=== PATIENT | female | born 1965 | race Caucasian/White ===

== ENCOUNTER 2017-09-04 12:13 | Outpatient (CLI) | payer MEDICARE, MEDICAID ==
[2017-09-04 16:06] LABS: #Basophils 0.1 thou/uL (0.0-0.2); #Eosinphils 0.2 thou/uL (0.0-0.7); #Lymphocytes 2.5 thou/uL (1.20-3.40); #Monocytes 0.5 thou/uL (0.11-0.59); %Eosinophils 1.7 % (0.0-10.0); %Lymphocytes 23.8 % (21.0-51.0); Hematocrit 45.8 % (36.0-47.0); Mean Platelet Volume 7.9 fL (7.4-10.4); Red Blood Cell (RBC) Count 4.78 mill/uL (4.20-5.40); White Blood Cell (WBC) Count 10.3 thou/uL (4.8-10.8)
== END 2017-09-04 12:14 | disposition home or self-care (01) ==
LOC: LABBT 12:13
PROVIDERS: ATTEND Orthopaedic Surgery
DX: Z01.812 Encounter for preprocedural laboratory examination (principal); G56.02 Carpal tunnel syndrome, left upper limb
CPT/HCPCS: 85025

== ENCOUNTER 2017-09-05 06:42 | Day surgery (SDC) | payer MEDICARE, MEDICAID ==
[2017-09-04 12:40] VITALS: BMI 35.5
[2017-09-05] MEDS ORDERED: CEFAZOLIN/Water 2 GM/20 ML SYRINGE ONE (08:22)
[2017-09-05] MEDS ORDERED: Lidocaine 1% (PF) 30 ML VIAL ONE (09:09)
[2017-09-05] MEDS ORDERED: Meperidine HCl/PF 25 MG/ML VIAL ONE (09:16)
[2017-09-05] MEDS ORDERED: Midazolam HCl 2 mg/2 ml Vial ONE (09:16)
--- NOTE | 2017-09-05 10:12 | OP ---
DATE OF PROCEDURE: 09/05/2017 PREOPERATIVE DIAGNOSIS: Left carpal tunnel syndrome. POSTOPERATIVE DIAGNOSIS: Left carpal tunnel syndrome. PROCEDURES PERFORMED: 1. Left open carpal tunnel release. 2. Placement of short arm volar splint left upper extremity. SURGEON: Thuan Nicolas M.D. SENIOR HEALTH CONSULTANT: None. BLOOD LOSS: Minimal. COMPLICATIONS: None. ANESTHESIA: She did have a general anesthetic. DISPOSITION: She went to the recovery room in stable condition. INDICATIONS: A 52-year-old female who has been having problems with numbness, tingling, and weakness in the hand. An EMG/NCV confirmed significant carpal tunnel syndrome. At this time, she opted for surgical release. DESCRIPTION OF PROCEDURE: After all appropriate consent forms were explained and signed, the patient was taken back to the operating room and at this time was given IV sedation. A well-padded tourniqu et was placed on the left arm and the arm was then prepped and draped in the standard surgical fashio n. The incision was then drawn out and infiltrated with plain lidocaine. Limb was exsanguinated and tourniquet taken up to 250 mmHg. At this time, using Loupe magnification, a 15 blade was used to in cise down through skin. Bipolar cautery was used to coagulate any brisk venous bleeding. We then pl aced a small hemostat to protect the underlying median nerve and transected the transverse carpal lig ament using multiple 15 blades as well as scissors. Once this was done, a small finger was inserted to palpate for any remaining bands. At this time, a moist Ray-Jake sponge was placed into the wound. Tourniquet was let down and pressure was held. Bipolar cautery used to coagulate any brisk venous b leeding. The wound was then irrigated with saline solution and we then evaluated the nerve. The ner ve was found to be significantly injected, the nerve was intact, there were no masses noted, and the underlying flexor tendons were in good condition. At this time, we irrigated and dried the wound. W e then placed multiple nylon stitches to close the incision. A bulky sterile hand dressing and a sma ll volar splint were then made. The patient was then awakened and taken to recovery in stable condit ion. All counts were correct at the end of the case. The patient received preoperative IV antibioti cs.
[2017-09-05] MEDS ORDERED: HYDROcodone/Acetaminophen 5/325 mg Tablet ONE (11:18)
[2017-09-05] MEDS ORDERED: Propofol 200 MG/20 ML VIAL ONE (15:33)
[2017-09-05] MEDS ORDERED: Lidocaine 1% PF 5 ML VIAL ONE (15:33)
== END 2017-09-05 11:48 ==
LOC: SDC 06:42
PROVIDERS: ATTEND Orthopaedic Surgery
PROC: 01N50ZZ Release Median Nerve, Open Approach (ICD-10-PCS; principal; 2017-09-05)
DX: G56.02 Carpal tunnel syndrome, left upper limb (principal); I10 Essential (primary) hypertension; E11.9 Type 2 diabetes mellitus without complications; G47.33 Obstructive sleep apnea (adult) (pediatric); F32.9 Major depressive disorder, single episode, unspecified; E78.5 Hyperlipidemia, unspecified; F17.210 Nicotine dependence, cigarettes, uncomplicated; Z79.84 Long term (current) use of oral hypoglycemic drugs; Z79.899 Other long term (current) drug therapy; Z98.51 Tubal ligation status; Z88.5 Allergy status to narcotic agent; Z90.49 Acquired absence of other specified parts of digestive tract; Z90.89 Acquired absence of other organs; Z98.890 Other specified postprocedural states
CPT/HCPCS: J2001; J2175; J2250; J2704

== ENCOUNTER 2017-09-29 19:35 | Emergency (ER) | payer MEDICARE, MEDICAID | END 2017-09-29 20:51 | disposition left against medical advice (07) | LOC: ERS 19:35 | DX: Z53.21 Procedure and treatment not carried out due to patient leaving prior to being seen by health care provider (principal) ==

== ENCOUNTER 2018-01-12 15:47 | Inpatient (IN) | payer MEDICARE, MEDICAID ==
[~2018-01-12 15:47] MED LIST: ISOVUE-370 76%-LOCM 1 ML ONE
[2018-01-12 16:20] LABS: #Basophils 0.1 thou/uL (0.0-0.2); #Eosinphils 0.3 thou/uL (0.0-0.7); #Lymphocytes 2.7 thou/uL (1.20-3.40); #Monocytes 1.3 thou/uL (0.11-0.59); #Neutrophils 15.1 thou/uL (1.40-6.50); %Basophils 0.4 % (0.0-1.0); %Eosinophils 1.3 % (0.0-10.0); %Lymphocytes 13.8 % (21.0-51.0); %Monocytes 6.6 % (0.0-10.0); %Neutrophils 77.9 % (42.0-75.0); Hemoglobin 14.7 g/dL (12.0-16.0); Mean Corpuscular HGB CONC 34.2 g/dL (32.0-36.0); Mean Corpuscular Hemoglobin 30.5 pg (27.0-31.0); Mean Corpuscular Volume 89.2 fl (81.0-99.0); Mean Platelet Volume 7.2 fL (7.4-10.4); Platelet Count 336 thou/uL (130-400); RBC Distribution Width 12.4 % (11.5-14.5); Red Blood Cell (RBC) Count 4.81 mill/uL (4.20-5.40); White Blood Cell (WBC) Count 19.4 thou/uL (4.8-10.8)
--- NOTE | 2018-01-12 16:37 | RAD ---
CHEST ONE VIEW: HISTORY: Chest pain. FINDINGS: The cardiac silhouette and pulmonary vasculature are unremarkable. The mediastinum is midline. No l obar consolidation or evidence of pneumothorax. educational technician leads overly the chest. IMPRESSION: No active cardiopulmonary abnormalities demonstrated. POS: [facility]
[2018-01-12 16:49] LABS: Acetaminophen Less than 6.0 mcg/mL (10.0-30.0); Alcohol Less than 10 mg/dL (Less than 10); Salicylate Less than 8.0 mg/dL (15.0-30.0)
[2018-01-12 16:52] LABS: ALT (SGPT) 43 U/L (8-55); AST (SGOT) 60 U/L (5-34); Albumin 4.4 g/dL (3.5-5.0); Alkaline Phosphatase 106 U/L (40-150); Anion Gap 16 mmol/L (10-20); BUN (Urea Nitrogen) 36 mg/dL (9.8-20.1); Bilirubin, Total 0.5 mg/dL (0.2-1.2); CK (CPK) 1814 U/L (29-168); Calc. Creatinine Clearance 0 mL/min (70-130); Calcium 10.1 mg/dL (7.8-10.44); Carbon Dioxide 23 mmol/L (22-29); Chloride 97 mmol/L (98-107); Estimated GFR-MDRD 17; Globulin 2.9 g/dL (2.4-3.5); Glucose 190 mg/dL (70-105); Lipase 60 U/L (8-78); Potassium 4.3 mmol/L (3.5-5.1); Protein, Total 7.3 g/dL (6.0-8.3); Sodium 132 mmol/L (136-145)
[2018-01-12 16:55] LABS: Troponin I 0.038 ng/mL (< 0.028)
[2018-01-12 17:03] LABS: CKMB 29.6 ng/mL (0-6.6)
[2018-01-12] MEDS ORDERED: Fentanyl 100 MCG/2 ML VIAL ONE (17:25)
--- NOTE | 2018-01-12 18:13 | CT ---
CT ARTERIOGRAM CHEST WITH IV CONTRAST AND 3D MIP IMAGING: CT ARTERIOGRAM ABDOMEN WITH IV CONTRAST AND 3D MIP IMAGING: CT THORACIC SPINE NONCONTRAST: HISTORY: Chest and back pain. Abdomen pain with radiation to back. FINDINGS: There is good contrast opacification of the pulmonary artery and aorta with normal branching of the g reat vessels. No filling defects or abnormal dilatation. Calcification is present within the arteri al structures. Visceral arteries of the abdomen are patent. A tiny, nonspecific, nodular infiltrate is present at the right posterolateral lung base. No pleural fluid, pneumothorax, or mediastinal adenopathy. The liver, spleen, adrenal glands, and pancreas are unremarkable. Degenerative changes of the thorac olumbar spine. Compression of the T11 vertebral body results in loss of height of the superior endp late by approximately 20%. There is extensive sclerosis and osteophytosis. Minimal retropulsion. IMPRESSION: 1. No CT evidence of aortic aneurysm or dissection. 2. Atherosclerosis. 3. Partial compression, T11 superior endplate, favored to be chronic. POS: [facility]
[2018-01-12] MEDS ORDERED: Norepinephrine 4 MG/4 ML VIAL ONE (18:15)
[2018-01-12 18:21] LABS: Bilirubin Negative (Negative); Blood, Urine Negative (Negative); Clarity CLOUDY (Clear); Glucose, Urine (Dipstick) Negative (Negative); Leukocyte Negative (Negative); Nitrite Negative (Negative); Protein, Urine (Dipstick) Trace mg/dL (Neg-Trace); Specific Gravity, Urine 1.024 (1.002-1.036); Urobilinogen 0.2 mg/dL (0.2-1.0)
[2018-01-12] MEDS ORDERED: Lorazepam 2 MG/ML VIAL ONE ×2 (18:22→18:49)
[2018-01-12] MEDS ORDERED: Norepinephrine 8 MG/250 ML BAG IVPB SCH (18:30)
[2018-01-12 18:34] LABS: Medtox Reader # READER 4
[2018-01-12 18:35] LABS: Amphetamine Detected (NotDetected); Barbiturates Screen Not Detected (NotDetected); Benzodiazepine Screen Detected (NotDetected); Cocaine Metabolite Screen Detected (NotDetected); Medtox Control Line Valid? VALID (VALID); Methadone Not Detected (NotDetected); Methamphetamine Detected (NotDetected); Opiate Screen Not Detected (NotDetected); Oxycodone Screen Not Detected (NotDetected); Phencyclidine (PCP) Not Detected (NotDetected); THC/Cannabinoid Screen Not Detected (NotDetected); Tricyclic Screen Not Detected (NotDetected)
[2018-01-12] MEDS ORDERED: Lidocaine 2% 10 ML INJ ONE (18:49)
[2018-01-12] MEDS ORDERED: KETAMINE 100 MG/ML (5ML VIAL) ONE (18:58)
[2018-01-12] MEDS ORDERED: Rocuronium Bromide 50 MG/5 ML VIAL ONE (19:39)
[2018-01-12] MEDS ORDERED: fentaNYL Citrate/PF 2,000 MCG in Sodium Chloride 0.9% 60 ML IV SCH (19:45)
[2018-01-12] MEDS ORDERED: Aspirin 300 MG Suppository ONE (20:07)
[2018-01-12 20:13] LABS: Actual Bicarbonate (HCO3a) 20.5 mEq/L (22-26); Base Excess (BEa) -6.7 mEq/L (0 (+/-) 2.5); CO2 Tension 47.3 mmHg (35.0-45.0); Carboxyhemoglobin (COHb) 2.1 gm% (0.0-3.0); Hematocrit-ABG 41.5 % (36.0-47.0); Hemoglobin (Hb) 13.1 g/dL (12.0-16.0); O2 Tension (PaO2) 191.8 mmHg (80.0-100.0); pH, Arterial 7.25 (7.35-7.45)
[2018-01-12 20:14] LABS: ALV-art Gradient 244.675 (0-20); Analyzer IN Cardio ER; Calcium, Ionized 1.2 mmol/L (1.12-1.30); Potassium - ABG Lab 3.4 mmol/L (3.70-5.30); Puncture Site RRA
[2018-01-12] MEDS ORDERED: Piperacillin/Tazobactam 3.375 GM VIAL ONE (20:19)
[2018-01-12] MEDS ORDERED: Sodium Chloride 0.9% 1,000 ML IV SCH (20:43)
[2018-01-12] MEDS ORDERED: Morphine 4 MG/ML VIAL SLOW IVP PRN (20:45)
[2018-01-12] MEDS ORDERED: Propofol 1,000 MG/100 ML VIAL IV PRN (20:45)
[2018-01-12] MEDS ORDERED: Fentanyl BOLUS 250 ML IVPB PRN (20:45)
[2018-01-12] MEDS ORDERED: Propofol BOLUS 1,000 MG/100 ML VIAL IV PRN (20:45)
[2018-01-12] MEDS ORDERED: Lorazepam 2 MG/ML VIAL SLOW IVP PRN (20:45)
[2018-01-12] MEDS ORDERED: DISCONTINUE PREVIOUS NARCOTIC PAIN MEDICATIONS AND BENZODIAZEPINES FS SCH (20:45)
[2018-01-12 20:53] LABS: Troponin I 0.016 ng/mL (< 0.028)
--- NOTE | 2018-01-12 21:03 | RAD ---
ONE VIEW CHEST: HISTORY: Status post central line placement. COMPARISON: 01/12/2018 at 4:07 p.m. FINDINGS: Interval placement of endotracheal tube, just beyond the clavicles. Left-sided central venous cathet er appears to terminate over the expected region of the superior vena cava. No pneumothorax. Stable aeration of the lung parenchyma. Stable cardiac silhouette. IMPRESSION: Lines and tubes as above. No pneumothorax. POS: [facility]
--- NOTE | 2018-01-12 21:04 | RAD ---
ONE VIEW CHEST: COMPARISON: 01/12/2018 at 7:44 p.m. HISTORY: Status post NG tube placement. FINDINGS: Interval placement of NG tube, with the distal tip in the left upper quadrant; otherwise, no signific ant interval change. IMPRESSION: Nasogastric tube placement. POS: [facility]
[2018-01-12 21:16] VITALS: BMI 36.3
[2018-01-12] MEDS: Sodium Chloride 0.9% 1,000 ML IV SCH (22:36)
[2018-01-12 22:48] LABS: Troponin I 0.018 ng/mL (< 0.028)
[2018-01-13] MEDS ORDERED: Dextrose 5% in Water 1,000 ML IV PRN (00:30)
[2018-01-13] MEDS ORDERED: Dextrose 50% Abboject 50 ML SYRINGE SLOW IVP PRN (00:30)
[2018-01-13] MEDS ORDERED: HumaLOG 300 UNITS/3 ML VIAL SC PRN ×2 (00:30)
--- NOTE | 2018-01-13 04:31 | HP ---
PRIMARY CARE PHYSICIAN: Unknown. PRESENTING COMPLAINT: Chest pain. HISTORY OF PRESENT ILLNESS: Ms. Marbella Romero is a 52-year-old female with a history of cocaine abuse, hypertension, type 2 diabetes mellitus, SWETA, and hypothyroidism who presents to the emergency room with chest pain. The patient reports being sober for 3 years and recently relapsed and has been using cocaine. She left the house to go to crack out on night and go back home yesterday. She reported chest pain and bilateral shoulder pain, worse on the left than the right. She also had some dizziness, but denies falls, injuries, fevers, or cough. She states she had a stress test in 2016, which was done by car storer, but does not know the results. Chest pain rated as 8/ 10, started suddenly, but she was unable to report the quality of the pain. There was no associated cough, fever, and no relieving factor or aggravating factor. While in the emergency room, patient was found to be tachycardic, otherwise normal physical examination. EKG shows incomplete left bundle branch block. Chest x-ray showed no acute pathology. She also had a CT dissection, which was also negative. Lab showed mild hyponatremia, elevated creatinine of 2.96, glucose of 190. Troponin 0.038. Urine toxicology was positive for amphetamines, methamphetamines, benzodiazepines, and cocaine metabolites. Urinalysis was unremarkable. CBC showed leukocytosis. While in the emergency room, she received benzodiazepines and eventually she was unable to protect her airway and went into respiratory failure and was intubated and sedated. She was also hypotensive and received 2 liters of normal saline, but did not respond much to that and was then started on pressors. History limited due to patient being intubated and sedated at time of examination. History is mainly gotten from chart review and sign out. PAST MEDICAL AND SURGICAL HISTORY: Hypertension, DM2, SWETA, depression, dyslipidemia, cholecystectomy, , cyst removed from right ovary, right wrist surgery, and left-sided Castellano's palsy. FAMILY HISTORY: Reviewed with brother. Noncontributory. SOCIAL HISTORY: Patient intubated, so unable to obtain. PAST SURGICAL HISTORY: As stated above. ALLERGIES: CODEINE. HOME MEDICATIONS: Buspirone 50 mg t.i.d., vitamin D3 1000 units daily, fexofenadine 180 mg daily, fluoxetine 60 mg daily, fluticasone propionate 1 spray in each naris p.r.n., gabapentin 600 mg b.i.d., ibuprofen 800 mg b.i.d., imiquimod apply topically at bedtime, levothyroxine 100 mcg daily, lisinopril 10 mg daily, metformin 500 mg b.i.d., rosuvastatin 20 mg at bedtime. REVIEW OF SYSTEMS: Unable to obtain as the patient is intubated and sedated. PHYSICAL EXAMINATION: VITAL SIGNS: Blood pressure 110/56, heart rate 76, oxygen saturation 100% on 5 % PEEP and 40% FiO2, respiratory rate 20. GENERAL: Not in acute distress, intubated, sedated and seems comfortable. HEENT: PERRLA. Normocephalic, atraumatic. Not pale, anicteric. Moist mucous membranes. NECK: Supple. RESPIRATORY: Vesicular breath sounds with no wheezes, rales, or rhonchi. CARDIOVASCULAR: S1, S2 only. Regular rate and rhythm. No murmurs, rubs, or gallops. ABDOMEN: Soft, nontender, nondistended. No bowel sounds. Normoactive. No hepatosplenomegaly. MUSCULOSKELETAL: No edema. SKIN: Warm, dry, well-perfused. No rashes or lesions. PSYCHIATRIC: Normal mood and affect. NEUROLOGIC: Intubated and sedated and was unable to cooperate with examination. LABORATORY DATA: CBC: As stated in the HPI. CMP: Sodium 132, BUN/creatinine of 36/2.96 respectively, glucose 190, creatine kinase 181.4, troponin 0.038. BNP 33. IMAGING: As stated in the HPI. ASSESSMENT AND PLAN: 1. Acute respiratory failure: Likely due to benzodiazepines given to the patient for chest pain in the emergency room. She has been intubated and sedated on minimal settings. We will ensure VAP bundle, daily chest x-ray, ABG. She will likely be extubated tomorrow after review by Pulmonology. 2. Hypotension: Did not respond to fluid boluses so started on levophed. Continue maintenance fluid and wean off Levophed. 3. Chest pain: Likely cocaine-induced chest pain. Trend troponin. Cardiology has been consulted. She will also likely require an echocardiogram on this admission. 4. Hypothyroidism: Resume home levothyroxine. Obtain TSH. 5. Type 2 diabetes mellitus: Not at goal, presenting blood glucose was 190. Obtain A1c, place on sliding scale insulin, hypoglycemia protocol, and q.6 hours blood glucose checks. 6. Acute kidney injury: Likely prerenal. She has been started on parenteral hydration. We will monitor renal indices and ins and outs. 7. Cocaine abuse: Personal Caregiver once she has been extubated. Deep venous thrombosis prophylaxis. Subcutaneous heparin. CRITICAL CARE TIME: 40 MINUTES CODE STATUS: FULL CODE. MTDD
[2018-01-13 04:34] LABS: Hemoglobin A1c 5.7 % (4.0-6.0)
[2018-01-13 04:39] LABS: ALT (SGPT) 45 U/L (8-55); AST (SGOT) 57 U/L (5-34); Albumin 3.8 g/dL (3.5-5.0); Alkaline Phosphatase 95 U/L (40-150); Anion Gap 11 mmol/L (10-20); BUN (Urea Nitrogen) 23 mg/dL (9.8-20.1); Bilirubin, Total 0.6 mg/dL (0.2-1.2); Calc. Creatinine Clearance 79 mL/min (70-130); Calcium 8.9 mg/dL (7.8-10.44); Carbon Dioxide 22 mmol/L (22-29); Chloride 106 mmol/L (98-107); Estimated GFR-MDRD 44; Globulin 2.6 g/dL (2.4-3.5); Glucose 150 mg/dL (70-105); Potassium 3.7 mmol/L (3.5-5.1); Protein, Total 6.4 g/dL (6.0-8.3); Sodium 135 mmol/L (136-145)
[2018-01-13 04:56] LABS: Band 1 % (5-11); Eosinophils 1 % (0-10); Hemoglobin 13.2 g/dL (12.0-16.0); Lymphocytes 18 % (21-51); MDiff Complete? YES; Mean Corpuscular HGB CONC 34.9 g/dL (32.0-36.0); Mean Corpuscular Hemoglobin 31.1 pg (27.0-31.0); Mean Corpuscular Volume 89.2 fl (81.0-99.0); Mean Platelet Volume 7.3 fL (7.4-10.4); Monocytes 5 % (0-10); Neutrophil 75 % (42-75); PLT Morphology Comment Appears Adequate; Platelet Count 307 thou/uL (130-400); RBC Distribution Width 12.4 % (11.5-14.5); Red Blood Cell (RBC) Count 4.26 mill/uL (4.20-5.40); White Blood Cell (WBC) Count 15.1 thou/uL (4.8-10.8)
[2018-01-13] MEDS: Sodium Chloride 0.9% 1,000 ML IV SCH ×3 (05:38→20:45)
--- NOTE | 2018-01-13 08:08 | RAD ---
CHEST ONE VIEW: History: Dyspnea. Follow up. Comparison: 01-12-18 FINDINGS: Cardiac silhouette is magnified by projection. Pulmonary vasculature remains slightly engorged. Media stinum is midline with aortic calcification. Lines and tubes appear unchanged in position. Cardiac mo nitor leads overlie the chest. IMPRESSION: 1. Borderline pulmonary vascular congestion and other findings are stable. POS: [facility]
[2018-01-13] MEDS ORDERED: Famotidine 40 MG/4 ML VIAL SLOW IVP SCH ×2 (09:00)
[2018-01-13] MEDS ORDERED: Potassium Chloride 20 MEQ TAB PO SCH (10:30)
[2018-01-13] MEDS: Heparin 5,000 UNITS/ML VIAL SC SCH ×3 (10:31→20:49)
--- NOTE | 2018-01-13 11:52 | CON ---
DATE OF CONSULTATION: 01/13/2018 HISTORY: The patient is a 52-year-old woman who presented for evaluation of chest discomfort. The patient has no known previous cardiac history. She was seen in 07/2016 with syncope. She was felt to have orthostatic hypotension. The patient also has a history of substance abuse. The patient states she was using cocaine 2 days ago when she suddenly developed severe substernal chest discomfort and came to the emergency room for further evaluation. The patient had to be emergently intubated after receiving sedatives. The patient denies having any present chest discomfort. PAST MEDICAL HISTORY: 1. Hypertension. 2. Diabetes mellitus. 3. Dyslipidemia. 4. Depression. PAST SURGICAL HISTORY: , and wrist surgery. SOCIAL HISTORY: Long history of tobacco abuse, FAMILY HISTORY: Positive family history of coronary artery disease. ALLERGIES: CODEINE. MEDICATIONS: Gabapentin 600 b.i.d., ibuprofen 100 b.i.d., metformin 500 b.i.d. , Crestor 20 daily, lisinopril 10 daily,and Synthroid 100 daily. REVIEW OF SYSTEMS: PHYSICAL EXAMINATION: GENERAL/VITAL SIGNS: Ill-appearing woman who is anxious with a blood pressure of 103/53, heart rate was 94. NECK: No jugular venous distention. LUNGS: Clear to auscultation. HEART: Regular rate and rhythm, normal S1, S2 with a 1/6 systolic murmur. ABDOMEN: Nondistended. EXTREMITIES: Showed no edema. SKIN: Warm and dry. VASCULAR: Distal pulses are diminished. LABORATORY DATA: Sodium 135, potassium 3.7, chloride 96, bicarbonate 22, BUN 23 , creatinine is 1.27. Troponin was 0.018. Her white blood cell count is 15.1, hemoglobin 13.2, hematocrit 38.0 and platelets are 307. EKG revealed normal sinus rhythm with a prolonged QT interval. IMPRESSION: 1. Chest pain probably secondary to cocaine induced vasospasm. 2. Respiratory failure. 3. Hypertension. 4. Diabetes mellitus. 5. Dyslipidemia. 6. Substance abuse. 7. Tobacco abuse. This patient presents with respiratory failure and chest pain. We will check the patient's echocardiogram. The patient most likely has evidence of peripheral vascular disease. The patient will need to undergo further evaluation and possible stress testing. We will follow this patient with you through her hospitalization. We will start the patient on aspirin and lipid lowering medication. [facility]
--- NOTE | 2018-01-13 12:03 | CON ---
DATE OF CONSULTATION: 01/13/2018 SERVICE: Pulmonary Medicine. REASON FOR CONSULTATION: Intubated patient. HISTORY OF PRESENT ILLNESS: The patient is a 52-year-old white female with past medical history significant for cocaine abuse. Apparently, she was in her usual state of health and doing really well until about a week ago. At that point, she dropped off the radar, and ultimately started doing a whole bunch of cocaine. She was found encephalopathic and brought to the emergency department. She had marginal blood pressures at that time. She appeared to have some degree of dehydration. Either way, after couple IV fluid boluses, her blood pressures remained a little bit marginal. As such, a central line was being placed. She decompensated fairly abruptly. After this, she was intubated. The line was finished under fairly emergent circumstances. Pressors were initiated. At no point, the patient lose pulse. This morning, her blood pressures are much more robust. She is awake on mechanical ventilation. She is following all commands. Echocardiogram is currently underway and she seems to demonstrate fairly decent squeeze if not hyperdynamic activity. PAST MEDICAL HISTORY: 1. Hypertension. 2. Type 2 diabetes mellitus. 3. Obstructive sleep apnea. 4. Major depressive disorder. 5. Dyslipidemia. PAST SURGICAL HISTORY: 1. Cholecystectomy. 2. section. 3. Excision of cyst from right ovary. 4. Right wrist surgery. FAMILY HISTORY: Noncontributory. SOCIAL HISTORY: She has polysubstance abuse. Otherwise, exposures are unknown. ALLERGIES: CODEINE. MEDICATIONS: List of her inpatient medications were reviewed and heavily modified. REVIEW OF SYSTEMS: This cannot be obtained as the patient is currently intubated and under the influence of a little bit of sedation. PHYSICAL EXAMINATION: VITAL SIGNS: Afebrile, pulse 63, blood pressure 106/45, respirations 20, saturation 100% on 27% FiO2. HEENT: Normocephalic, atraumatic. Sclerae are white, conjunctivae pink. Oral mucosa is moist without lesions. LUNGS: Decent air entry. There is no prolonged expiratory phase or wheezing present. HEART: Normal rate, regular. ABDOMEN: Soft, nontender, nondistended. Bowel sounds are positive. MUSCULOSKELETAL: No cyanosis or clubbing. There is no pitting in the bilateral lower extremities. NEUROLOGIC: Grossly nonfocal. LABORATORY: WBC 15.1, hemoglobin 13.2, platelets 307,000. Differential is close to normal. A pH 7.25, pCO2 47, pO2 191 on 70% FiO2 at that time. Creatinine 1.27 and beautifully down trending. BUN 23. Basic metabolic profile is otherwise unremarkable. Potassium 3.7. Liver function studies are essentially unremarkable with an AST that is gently down trending. Troponin 0.018. TSH 1.57. Hemoglobin A1c 5.7. Urinalysis is unremarkable. Urine drug screen is positive for amphetamines, methamphetamines, benzodiazepines, and cocaine metabolites. Alcohol, acetaminophen and salicylate were all unremarkable. IMAGIN. CT dissection protocol demonstrates no evidence of dissection. She has got some atherosclerosis present. Nonspecific nodular infiltrate is present in the right posterolateral lung base, suggestive of aspiration type of an event. 2. Chest x-ray demonstrates endotracheal tube in excellent position 2 cm above the jihan. There is a left-sided IJ central venous catheter terminates in good position. Chest, otherwise clear. Enteric catheter courses midline below the level of the diaphragm. ASSESSMENT: 1. Metabolic encephalopathy. 2. Acute hypoxic respiratory failure. 3. Aspiration pneumonitis. 4. Cocaine abuse. PLAN: I will give her spontaneous breathing trial. If she meets criteria at the end of this thing, extubation will be considered. Echocardiogram demonstrated a fairly hyperdynamic left ventricle. As such, I do think we are dealing with a major heart event here. Potassium will be replaced proactively. The central line will be removed as soon as possible. Critical care time: 30 minutes. MTDD
[2018-01-13] MEDS: Aspirin 325 mg Enteric Coated Tablet PO SCH (13:00)
--- NOTE | 2018-01-13 16:26 | PDOC.PN ---
- Subjective Encounter Start Date: 01/13/18 Encounter Start Time: 10:45 Subjective: pt up in bed no complains - Objective Resuscitation Status: Resuscitation Status FULL:Full Resuscitation Vital Signs & Weight: Vital Signs (12 hours) Temp Pulse Resp Pulse Ox 01/13/18 13:27 93 18 100 01/13/18 12:00 98.1 F 01/13/18 08:00 97.7 F 76 20 93 L 01/13/18 07:45 85 16 96 01/13/18 07:39 71 01/13/18 06:00 20 Weight Admit Weight 211 lb 13.828 oz Weight 210 lb 8.663 oz Most Recent Monitor Data Heart Rate from ECG 89 NIBP 123/70 NIBP BP-Mean 87 Respiration from ECG 19 SpO2 97 I&O: 01/12/18 01/13/18 01/14/18 06:59 06:59 06:59 Intake Total 1476 2130 Output Total 1805 575 Balance -329 1555 Result Diagrams: 01/13/18 04:17 01/13/18 04:17 Additional Labs: Accuchecks 01/13/18 01/13/18 01/13/18 16:01 11:17 05:41 POC Glucose 166 H 121 H 141 H Phys Exam - Physical Examination HEENT: PERRLA, moist MMs, sclera anicteric, TM's clear, oral pharynx no lesions , 2+ tonsils Neck: no nodes, no JVD, supple, full ROM Respiratory: no wheezing, no rales, no rhonchi, wheezing present, clear to auscultation bilateral Cardiovascular: RRR, no significant murmur, no rub, gallop, irregular Gastrointestinal: soft, non-tender, no distention, positive bowel sounds Dx/Plan - Plan 1) acute resp failure 2) chest pain 3)hypotension 4) substance abuse plan: pt was exutubated, currenlty is doing well. echo indicates ef of 55-60%, pt on asa and statin. * . Review of Systems - Review of Systems Eyes: negative: Pain, Vision Change, Conjunctivae Inflammation, Eyelid Inflammation, Redness, Other ENT: negative: Ear Pain, Ear Discharge, Nose Pain, Nose Discharge, Nose Congestion, Mouth Pain, Mouth Swelling, Throat Pain, Throat Swelling, Other Respiratory: negative: Cough, Dry, Shortness of Breath, Hemoptysis, SOB with Excertion, Pleuritic Pain, Sputum, Wheezing Cardiovascular: negative: chest pain, palpitations, orthopnea, paroxysmal nocturnal dyspnea, edema, light headedness, other Genitourinary: negative: Dysuria, Frequency, Incontinence, Hematuria, Retention , Other - Medications/Allergies Allergies/Adverse Reactions: Allergies Allergy/AdvReac Type Severity Reaction Status Date / Time codeine Allergy Verified 09/04/17 12:31 Medications: Current Medications Aspirin (Ecotrin) 325 mg PO DAILY [facility] Last Admin: 01/13/18 13:00 Dose: 325 mg Atorvastatin Calcium (Lipitor) 40 mg PO HS [facility] Dextrose/Water (Dextrose 50%) 25 gm SLOW IVP PRN PRN PRN Reason: Hypoglycemia Famotidine (Pepcid) 20 mg PO BID [facility] Glucagon (Glucagon) 1 mg IM PRN PRN PRN Reason: Hypoglycemia Heparin Sodium (Porcine) (Heparin) 5,000 units SC TID [facility] Last Admin: 01/13/18 15:45 Dose: 5,000 units Norepinephrine Bitartrate (Levophed) 250 mls @ 3.75 mls/hr IVPB INF [facility]; 2 MCG/ MIN PRN Reason: Protocol Dextrose/Water (D5w) 1,000 mls @ 0 mls/hr IV .Q0M PRN; As Directed PRN Reason: Hypoglycemia Sodium Chloride (Normal Saline 0.9%) 1,000 mls @ 75 mls/hr IV .[id number] [facility] Last Admin: 01/13/18 10:28 Dose: Not Given Dexmedetomidine HCl 200 mcg/ (Sodium Chloride) 50 mls @ 0 mls/hr IVPB INF [facility]; Titrate PRN Reason: Protocol Last Admin: 01/13/18 15:45 Dose: 50 mls Insulin Human Lispro (Humalog) 0 units SC .MILD SLIDING SCALE PRN PRN Reason: Mild Correctional Scale Last Admin: 01/13/18 15:59 Dose: 2 unit Insulin Human Lispro (Humalog) 0 units SC .BEDTIME SLIDING SC PRN PRN Reason: Bedtime Correctional Scale Discontinue Previous Narcotic Pain Medications And Benzodiazepines 1 each FS .ONE [facility] Stop: 02/11/18 20:45 Sodium Chloride (Flush - Normal Saline) 10 ml IVF Q12HR [facility] Last Admin: 01/13/18 10:31 Dose: 10 ml Sodium Chloride (Flush - Normal Saline) 10 ml IVF PRN PRN PRN Reason: Saline Flush
[2018-01-13] MEDS: Famotidine 20 MG TAB PO SCH (20:48)
[2018-01-13] MEDS ORDERED: Atorvastatin Calcium 40 MG TAB PO SCH (21:00)
[2018-01-14 05:04] LABS: Anion Gap 10 mmol/L (10-20); BUN (Urea Nitrogen) 13 mg/dL (9.8-20.1); Calc. Creatinine Clearance 132 mL/min (70-130); Calcium 9.1 mg/dL (7.8-10.44); Carbon Dioxide 24 mmol/L (22-29); Chloride 106 mmol/L (98-107); Estimated GFR-MDRD 81; Glucose 140 mg/dL (70-105); Magnesium 1.6 mg/dL (1.6-2.6); Phosphorus 2.5 mg/dL (2.3-4.7); Potassium 3.9 mmol/L (3.5-5.1); Sodium 136 mmol/L (136-145)
[2018-01-14 06:03] LABS: Band 1 % (5-11); Eosinophils 9 % (0-10); Hemoglobin 11.8 g/dL (12.0-16.0); Lymphocytes 29 % (21-51); MDiff Complete? YES; Mean Corpuscular HGB CONC 35.8 g/dL (32.0-36.0); Mean Corpuscular Hemoglobin 32.3 pg (27.0-31.0); Mean Corpuscular Volume 90.2 fl (81.0-99.0); Mean Platelet Volume 7.6 fL (7.4-10.4); Monocytes 6 % (0-10); Neutrophil 54 % (42-75); PLT Morphology Comment Appears Adequate; Platelet Count 204 thou/uL (130-400); RBC Distribution Width 12.3 % (11.5-14.5); RBC Morphology Normal; Reactive Lymphocytes 1 % (0-10); Red Blood Cell (RBC) Count 3.66 mill/uL (4.20-5.40)
--- NOTE | 2018-01-14 08:38 | PRG ---
DATE OF SERVICE: 01/14/2018 SUBJECTIVE: The patient is currently on a Precedex drip. She is fidgety. She is telling everybody that she went down to [place] and began using cocaine again. OBJECTIVE: VITAL SIGNS: Temperature is 97.7, pulse 67, blood pressure 99/59. A 24-hour intake is 2919 and outp ut 975. HEENT: Unremarkable. NECK: No JVD. CHEST: Clear. CARDIAC: S1 and S2 regular. ABDOMEN: Soft. EXTREMITIES: No edema. LABORATORY DATA: Sodium 136, potassium 3.9, chloride 106, CO2 24, BUN 13, creatinine 0.7, glucose 12 9, white blood cell count 6, hematocrit 33, platelet count 204. ASSESSMENT: 1. Chest pain. 2. Metabolic encephalopathy, which is improved. 3. Cocaine abuse. 4. Obstructive sleep apnea. PLAN: 1. The patient can be transferred out to telemetry. Further workup per Cardiology. 2. Continue CPAP at night. 3. Discontinue the Precedex drip. 4. Drug abuse. Counseling has been offered, but the patient has refused.
[2018-01-14] MEDS ORDERED: Non-Formulary Item 1 EACH (Fluoxetine Hcl [Prozac] 60 MG) PO SCH (09:00)
[2018-01-14] MEDS ORDERED: Lisinopril 10 MG TAB PO SCH (09:00)
[2018-01-14] MEDS ORDERED: Non-Formulary Item 1 EACH (Buspirone Hcl [Buspirone Hcl] 15 MG) PO SCH (09:00)
[2018-01-14] MEDS ORDERED: FLUoxetine HCl 20 MG CAP PO SCH (09:00)
[2018-01-14] MEDS ORDERED: Levothyroxine Sodium 100 MCG TAB PO SCH (09:00)
[2018-01-14] MEDS ORDERED: Gabapentin 300 MG CAP PO SCH (09:00)
[2018-01-14] MEDS: busPIRone HCl 5 MG TAB PO SCH ×2 (09:58→14:58)
[2018-01-14] MEDS: Famotidine 20 MG TAB PO SCH (09:58)
[2018-01-14] MEDS: Aspirin 325 mg Enteric Coated Tablet PO SCH (09:58)
[2018-01-14] MEDS: Heparin 5,000 UNITS/ML VIAL SC SCH ×2 (09:59→14:58)
--- NOTE | 2018-01-14 13:43 | PDOC.PN ---
- Subjective Encounter Start Date: 01/14/18 Encounter Start Time: 10:00 Subjective: pr up in bed no complains - Objective Resuscitation Status: Resuscitation Status FULL:Full Resuscitation Vital Signs & Weight: Vital Signs (12 hours) Temp Pulse Resp BP Pulse Ox 01/14/18 12:00 98.6 F 01/14/18 09:59 120/59 L 01/14/18 08:00 98.5 F 65 20 96 Weight Admit Weight 211 lb 13.828 oz Weight 201 lb 4.513 oz Most Recent Monitor Data Heart Rate from ECG 73 NIBP 126/84 NIBP BP-Mean 89 Respiration from ECG 22 SpO2 95 I&O: 01/13/18 01/14/18 01/15/18 06:59 06:59 06:59 Intake Total 1476 2919.4 687 Output Total 1805 975 851 Balance -329 1944.4 -164 Result Diagrams: 01/14/18 04:19 01/14/18 04:19 Additional Labs: Accuchecks 01/14/18 01/14/18 01/13/18 12:03 05:49 20:56 POC Glucose 100 129 H 114 H 01/13/18 16:01 POC Glucose 166 H Phys Exam - Physical Examination HEENT: PERRLA, moist MMs, sclera anicteric, TM's clear, oral pharynx no lesions , 2+ tonsils Neck: no nodes, no JVD, supple, full ROM Respiratory: no wheezing, no rales, no rhonchi, wheezing present, clear to auscultation bilateral Cardiovascular: RRR, no significant murmur, no rub, gallop, irregular Gastrointestinal: soft, non-tender, no distention, positive bowel sounds Musculoskeletal: no edema, pulses present, edema present Dx/Plan - Plan 1) acute resp failure 2) chest pain 3)hypotension 4) substance abuse plan: pt was exutubated, currenlty is doing well. echo indicates ef of 55-60%, pt on asa and statin. pt educated on cessation of substance abuse. Was on precedex off now. * . Review of Systems - Review of Systems Eyes: negative: Pain, Vision Change, Conjunctivae Inflammation, Eyelid Inflammation, Redness, Other ENT: negative: Ear Pain, Ear Discharge, Nose Pain, Nose Discharge, Nose Congestion, Mouth Pain, Mouth Swelling, Throat Pain, Throat Swelling, Other Respiratory: negative: Cough, Dry, Shortness of Breath, Hemoptysis, SOB with Excertion, Pleuritic Pain, Sputum, Wheezing Cardiovascular: negative: chest pain, palpitations, orthopnea, paroxysmal nocturnal dyspnea, edema, light headedness, other Gastrointestinal: negative: Nausea, Vomiting, Abdominal Pain, Diarrhea, Constipation, Melena, Hematochezia, Other - Medications/Allergies Allergies/Adverse Reactions: Allergies Allergy/AdvReac Type Severity Reaction Status Date / Time codeine Allergy Verified 09/04/17 12:31 Medications: Current Medications Aspirin (Ecotrin) 325 mg PO DAILY [facility] Last Admin: 01/14/18 09:58 Dose: 325 mg Atorvastatin Calcium (Lipitor) 40 mg PO HS [facility] Last Admin: 01/13/18 20:49 Dose: 40 mg Buspirone HCl (Buspar) 15 mg PO TID [facility] Last Admin: 01/14/18 09:58 Dose: 15 mg Dextrose/Water (Dextrose 50%) 25 gm SLOW IVP PRN PRN PRN Reason: Hypoglycemia Famotidine (Pepcid) 20 mg PO BID [facility] Last Admin: 01/14/18 09:58 Dose: 20 mg Fluoxetine HCl (Prozac) 60 mg PO DAILY [facility] Last Admin: 01/14/18 09:58 Dose: 60 mg Gabapentin (Neurontin) 600 mg PO BID [facility] Last Admin: 01/14/18 09:59 Dose: 600 mg Glucagon (Glucagon) 1 mg IM PRN PRN PRN Reason: Hypoglycemia Heparin Sodium (Porcine) (Heparin) 5,000 units SC TID [facility] Last Admin: 01/14/18 09:59 Dose: 5,000 units Dextrose/Water (D5w) 1,000 mls @ 0 mls/hr IV .Q0M PRN; As Directed PRN Reason: Hypoglycemia Insulin Human Lispro (Humalog) 0 units SC .MILD SLIDING SCALE PRN PRN Reason: Mild Correctional Scale Last Admin: 01/13/18 15:59 Dose: 2 unit Insulin Human Lispro (Humalog) 0 units SC .BEDTIME SLIDING SC PRN PRN Reason: Bedtime Correctional Scale Levothyroxine Sodium (Synthroid) 100 mcg PO DAILY [facility] Last Admin: 01/14/18 09:59 Dose: 100 mcg Lisinopril (Zestril) 10 mg PO DAILY [facility] Last Admin: 01/14/18 09:59 Dose: 10 mg Metformin HCl (Glucophage) 500 mg PO BID-WM [facility] Discontinue Previous Narcotic Pain Medications And Benzodiazepines 1 each FS .ONE [facility] Stop: 02/11/18 20:45 Sodium Chloride (Flush - Normal Saline) 10 ml IVF Q12HR [facility] Last Admin: 01/14/18 10:00 Dose: 10 ml Sodium Chloride (Flush - Normal Saline) 10 ml IVF PRN PRN PRN Reason: Saline Flush
[2018-01-14 16:20] VITALS: BP 125/81; TEMP 98.1
--- NOTE | 2018-01-14 16:45 | PDOC.CTH ---
Cardiology Progress Note - Subjective She is doing better. She denies any chest pain, tightness, pressure, SOB, She wants to go home. - Objective Vital Signs Temp Pulse Resp BP BP Pulse Ox 01/14/18 16:18 98.1 F 80 16 125/81 95 01/14/18 12:00 98.6 F 01/14/18 09:59 120/59 L 01/14/18 08:00 98.5 F 65 20 96 Admit Weight 211 lb 13.828 oz Weight 201 lb 4.513 oz 01/13/18 01/14/18 01/15/18 06:59 06:59 06:59 Intake Total 1476 2919.4 687 Output Total 1805 975 851 Balance -329 1944.4 -164 - Physical Examination General/Neuro: alert & oriented x3, NAD Neck: no JVD present Lungs: CTA, unlabored respirations Heart: RRR Abdomen: NT/ND Extremities: + edema B (Trace) - Telemetry Telemetry Rhythm: NSR - Labs Result Diagrams: 01/14/18 04:19 01/14/18 04:19 Troponin/CKMB CK-MB (CK-2) 29.6 ng/mL (0-6.6) H* 01/12/18 16:15 Troponin I 0.018 ng/mL (< 0.028) 01/12/18 22:15 - Assessment/Plan 1. Chest pain 2. Encephalopathy, resolved. 3. Substance abuse PLAN; - Chest pain likely from cocaine use. Counselled on cessation. - Normal LV function. - She may be discharged home at any time from cardiac perspective. - She is high risk for recurrence given substance abuse and non compliance. - I would be very hesitant to do [facility] an possibly PCI in her due to her non compliance and would only offer this if she is having an Acute coronary syndrome which she did not have this time. - Follow up in the office in 1 month.
[2018-01-14] MEDS ORDERED: metFORMIN 500 MG TAB PO SCH (17:00)
--- NOTE | 2018-01-15 14:10 | DIS ---
DATE OF ADMISSION: 01/13/2018 DATE OF DISCHARGE: 01/14/2018 DISCHARGE DIAGNOSES: 1. Acute respiratory failure. 2. Chest pain. 3. Hypertension. 4. Substance abuse. HOSPITAL COURSE: The patient is a 52-year-old female who initially presented to the hospital with ch est pain. The patient has a history of cocaine abuse, hypertension, type 2 diabetes. The patient wa s seen by Cardiology and by Pulmonology. The patient underwent an echocardiogram, which indicated an EF of 55%-60%, normal-sized left atrium, and mild tricuspid regurgitation. She was educated on refr aining from substance abuse. The patient's chest pain continued to improve throughout the hospital s andres. She was discharged home. DISCHARGE MEDICATIONS: 1. Metformin 500 mg p.o. b.i.d. 2. Buspirone 15 mg t.i.d. 3. Rosuvastatin 20 mg at bedtime. 4. Lisinopril 10 mg daily. 5. Synthroid 100 mcg p.o. daily. 6. Gabapentin 600 mg p.o. b.i.d. 7. Prozac 15 mg daily. 8. Fexofenadine 180 mg daily. 9. Fluticasone 1 spray p.r.n. as needed. PHYSICAL EXAMINATION: VITAL SIGNS: Her vitals on discharge was 98.6, 73, 15, 95% on room air, 125/81. GENERAL: She was awake, alert, oriented x3, in no apparent distress. CARDIOVASCULAR: S1, S2 present. No murmurs, rubs or gallops. ABDOMEN: Soft, nontender. Bowel sounds are present x2. She has been chest pain free. She will be discharged home. Follow up with PCP.
--- NOTE | 2018-02-18 13:12 | EKG ---
Test Reason : Blood Pressure : / mmHG Vent. Rate : 096 BPM Atrial Rate : 096 BPM P-R Int : 148 ms QRS Dur : 094 ms QT Int : 410 ms P-R-T Axes : 077 012 029 degrees QTc Int : 517 ms Normal sinus rhythm Possible Left atrial enlargement Incomplete right bundle branch block Inferior infarct , age undetermined Prolonged QT Abnormal ECG Confirmed by NIDA DUGAN ([id number]), scientific publications editor OUSMANE ANN ([id number]) on 02/18/2018 1:11:19 PM Referred By: Confirmed By:NIDA DUGAN
== END 2018-01-14 17:46 | disposition home or self-care (01) | DRG 208 ==
LOC: ERS 15:47 → ERHOLD 18:00 → CCU 20:39 → 2NO 01-14 12:24
PROVIDERS: ADMIT Family Medicine; ATTEND Family Medicine
PROC: 5A1935Z Respiratory Ventilation, Less than 24 Consecutive Hours (ICD-10-PCS; principal; 2018-01-12)
DX: J96.01 Acute respiratory failure with hypoxia (principal); J69.0 Pneumonitis due to inhalation of food and vomit; G93.41 Metabolic encephalopathy; N17.9 Acute kidney failure, unspecified; I95.9 Hypotension, unspecified; E87.1 Hypo-osmolality and hyponatremia; E86.0 Dehydration; F14.10 Cocaine abuse, uncomplicated; Z91.19 Patient's noncompliance with other medical treatment and regimen; E03.9 Hypothyroidism, unspecified; E11.9 Type 2 diabetes mellitus without complications; I10 Essential (primary) hypertension; F41.9 Anxiety disorder, unspecified; F32.9 Major depressive disorder, single episode, unspecified; G47.33 Obstructive sleep apnea (adult) (pediatric); I44.7 Left bundle-branch block, unspecified; E78.5 Hyperlipidemia, unspecified; G51.0 Bell's palsy; F19.10 Other psychoactive substance abuse, uncomplicated; I73.89 Other specified peripheral vascular diseases
CPT/HCPCS: 36415; 36416; 71045; 71275; 80048; 80053; 80306; 80307; 81003; 82553; 82805; 83036; 83605; 83690; 83735; 83880; 84100; 84443; 84484; 85007; 85025; 85027; 93005; 93306; 94002; 94003; 94660; 96361; 96365; 96368; 96375; 96376; J1644; J2060; J2543; J3010; J7050

== ENCOUNTER 2018-07-09 12:16 | Outpatient (CLI) | payer MEDICARE, MEDICAID ==
--- NOTE | 2018-07-09 13:52 | CT ---
CT OF THE THORAX WITH IV CONTRAST: INDICATION: Followup pulmonary nodules. COMPARISON: Prior CT of the thorax dated 06/19/2017 from [facility]. FINDINGS: The ground-glass nodular opacity within the superior segment of the right lower lobe is stable in siz e. On remeasurement retrospectively, the lesion measured 1.0 cm. The lesion measures 1 cm on today' s evaluation. On retrospective review, there is a stable 5 mm ground-glass pulmonary nodule also wit hin the superior segment of the right lower lobe on image 20 of series 3. Possibly a new ground-glas s nodule opacity is seen within the right lower lobe on image 30 of series 3. The amount of respirat ory motion artifact on the prior examination is slightly limited in detail. No additional suspicious pulmonary nodule is evident. No enlarged lymph nodes are evident. There are coronary artery thorac ic aorta calcifications. There are healed deformities involving the left anterolateral 4th and 5th r ibs. Visualized upper abdomen reveals no acute abnormality. There is a superior end plate compressi on deformity of T11 which is stable. IMPRESSION: 1. Ground-glass pulmonary nodules of the right lower lobe. The largest measuring 1 cm is stable. T here is an additional stable 5 mm pulmonary nodule in the superior segment of the right lower lobe. There is a 3 mm pulmonary nodule that was not definitely seen on the comparison examination. Short-t erm followup in 6 months is recommended to document stability. 2. Stable superior end plate compression deformity of T11. Stable healed deformity involving the an terolateral left 4th and 5th ribs. 3. Coronary artery thoracic aorta calcifications. POS: KATHLEEN
== END 2018-07-09 12:17 | disposition home or self-care (01) ==
LOC: CT 12:16
PROVIDERS: ATTEND Internal Medicine Critical Care Medicine
DX: R91.1 Solitary pulmonary nodule (principal); G47.33 Obstructive sleep apnea (adult) (pediatric); R91.8 Other nonspecific abnormal finding of lung field; M43.8X4 Other specified deforming dorsopathies, thoracic region; I25.10 Atherosclerotic heart disease of native coronary artery without angina pectoris; I70.0 Atherosclerosis of aorta
CPT/HCPCS: 71260

== ENCOUNTER 2018-09-16 17:58 | Inpatient (IN) | payer MEDICARE, MEDICAID ==
[2018-09-16] MEDS ORDERED: Acetaminophen 500 MG TAB ONE (18:26)
[2018-09-16 18:38] LABS: Actual Bicarbonate (HCO3a) 21.9 mEq/L (22-28); Analyzer IN Cardio ER; CO2 Tension 31.4 mmHg (35.0-45.0); Calcium, Ionized 1.16 mmol/L (1.12-1.30); Potassium - ABG Lab 3.97 mmol/L (3.70-5.30); pH, Arterial 7.46 (7.35-7.45)
[2018-09-16 18:40] LABS: O2 Tension (PaO2) 55.9 mmHg (80.0-100.0)
[2018-09-16 18:50] LABS: #Eosinphils 0.2 thou/uL (0.0-0.7); #Lymphocytes 1.1 thou/uL (1.20-3.40); #Monocytes 0.7 thou/uL (0.11-0.59); #Neutrophils 12.8 thou/uL (1.40-6.50); %Basophils 0.1 % (0.0-1.0); %Eosinophils 1.4 % (0.0-10.0); %Lymphocytes 7.6 % (21.0-51.0); %Monocytes 4.9 % (0.0-10.0); Hemoglobin 12.9 g/dL (12.0-16.0); Mean Corpuscular Hemoglobin 30.8 pg (27.0-31.0); Mean Corpuscular Volume 90.6 fL (78.0-98.0); Mean Platelet Volume 7.5 fL (7.4-10.4); Platelet Count 295 thou/uL (130-400); RBC Distribution Width 12.5 % (11.5-14.5); Red Blood Cell (RBC) Count 4.18 mill/uL (4.20-5.40); White Blood Cell (WBC) Count 14.9 thou/uL (4.8-10.8)
[2018-09-16 19:10] LABS: ALT (SGPT) 21 U/L (8-55); AST (SGOT) 37 U/L (5-34); Albumin 3.8 g/dL (3.5-5.0); Alkaline Phosphatase 89 U/L (40-150); Anion Gap 13 mmol/L (10-20); BUN (Urea Nitrogen) 8 mg/dL (9.8-20.1); Bilirubin, Total 0.4 mg/dL (0.2-1.2); Calc. Creatinine Clearance 0 mL/min (70-130); Calcium 9.8 mg/dL (7.8-10.44); Carbon Dioxide 26 mmol/L (22-29); Chloride 101 mmol/L (98-107); Estimated GFR-MDRD 72; Globulin 3.7 g/dL (2.4-3.5); Glucose 122 mg/dL (70-105); Potassium 3.9 mmol/L (3.5-5.1); Protein, Total 7.5 g/dL (6.0-8.3); Sodium 136 mmol/L (136-145)
[2018-09-16 19:10] LABS: Bilirubin Negative (Negative); Blood, Urine Negative (Negative); Clarity CLEAR (Clear); Glucose, Urine (Dipstick) Negative (Negative); Leukocyte Negative (Negative); Nitrite Negative (Negative); Protein, Urine (Dipstick) Trace mg/dL (Neg-Trace); Specific Gravity, Urine 1.009 (1.002-1.036)
--- NOTE | 2018-09-16 19:13 | RAD ---
SINGLE VIEW OF THE CHEST: 09/16/18 COMPARISON: 01/13/[address] of the chest 07/09/18. HISTORY: Shortness of breath and cough. FINDINGS: Single view of the chest shows a normal sized cardiomediastinal silhouette. There appear to be multif ocal opacities projecting over the lungs, greater over the lower lobes which may represent infiltrate s. No pleural effusion is seen. The bones are unremarkable. IMPRESSION: Multifocal pneumonia. POS: [facility]
[2018-09-16] MEDS ORDERED: cefTRIAXone\\ROCEPHIN 1 GM VIAL ONE (19:18)
[2018-09-16] MEDS ORDERED: Sodium Chloride 0.9% 100 ML ONE (19:18)
[2018-09-16] MEDS ORDERED: Azithromycin 500 MG VIAL ONE (20:03)
[2018-09-16] MEDS ORDERED: Nicotine 14 MG PATCH ONE (21:52)
[2018-09-16] MEDS ORDERED: Nicotine 14 MG PATCH TOP SCH (22:00)
[2018-09-16] MEDS ORDERED: Acetaminophen 325 MG TAB PO PRN (22:16)
[2018-09-16 22:25] VITALS: BMI 34.7
[2018-09-16] MEDS ORDERED: Rosuvastatin 20 MG TAB PO SCH (23:45)
[2018-09-16] MEDS ORDERED: Amitriptyline HCl 25 MG TAB PO SCH (23:45)
[2018-09-17] MEDS ORDERED: Gabapentin 400 MG CAP PO SCH (00:45)
[2018-09-17] MEDS ORDERED: busPIRone HCl 10 MG TAB PO SCH (00:45)
[2018-09-17] MEDS ORDERED: Senokot S 8.6-50 MG TAB PO PRN (03:52)
[2018-09-17] MEDS ORDERED: Bisacodyl 5 MG TAB PO PRN (03:52)
[2018-09-17] MEDS ORDERED: Ondansetron PF 4 MG/2 ML Vial IVP PRN (03:52)
[2018-09-17] MEDS ORDERED: Guaifenesin DM 100-10/5 ML UDCUP PO PRN (03:52)
[2018-09-17] MEDS ORDERED: Ondansetron ODT 4 MG TAB PO PRN (03:52)
[2018-09-17] MEDS ORDERED: Dextrose 50% Abboject 50 ML SYRINGE SLOW IVP PRN (03:59)
[2018-09-17] MEDS ORDERED: HumaLOG 300 UNITS/3 ML VIAL SC PRN ×2 (03:59)
[2018-09-17] MEDS ORDERED: Dextrose 5% in Water 1,000 ML IV PRN (03:59)
[2018-09-17] MEDS: Sodium Chloride 0.9% 1,000 ML IV SCH ×3 (06:18→23:39)
[2018-09-17] MEDS: Levothyroxine Sodium 100 MCG TAB PO SCH (06:19)
[2018-09-17 07:57] LABS: Legionella Urinary Ag Negative (Negative); Strep pneumo Urine Ag NEGATIVE (NEGATIVE)
[2018-09-17] MEDS: Ferrous Sulfate 325 MG TAB PO SCH (08:59)
[2018-09-17] MEDS: Gabapentin 400 MG CAP PO SCH ×3 (08:59→20:05)
[2018-09-17] MEDS: Lisinopril 5 MG TAB PO SCH (08:59)
[2018-09-17] MEDS: Aspirin 81 mg Enteric Coated Tablet PO SCH (08:59)
[2018-09-17] MEDS: Famotidine 20 MG TAB PO SCH ×2 (09:00→20:06)
[2018-09-17] MEDS: FLUoxetine HCl 20 MG CAP PO SCH (09:00)
[2018-09-17] MEDS: busPIRone HCl 10 MG TAB PO SCH ×3 (09:00→20:04)
[2018-09-17] MEDS: Enoxaparin Sodium 40 MG/0.4 ML SYRINGE SC SCH (09:02)
[2018-09-17] MEDS: Famotidine/PF 20 mg/2ml Vial SLOW IVP SCH ×2 (09:03→20:17)
--- NOTE | 2018-09-17 09:27 | HP ---
CHIEF COMPLAINT: Shortness of breath. HISTORY OF PRESENT ILLNESS: This is a 53-year-old female, who presents to the ED with chief complaint of shortness of breath that has been going on for the past four days prior to day of admission. The patient states that she smokes a lot of cigarettes, and she recently quit today and she feels like this smoking in addition to her BiPAP that she uses at night which was not cleaned properly is probably giving her possible pneumonia that she has. The patient is also endorsing a fever of 101, which was measured. The patient also states that several days ago she had a sinusitis and eventually sore throat, which she thinks has progressed to her now having cough with productive sputum causing her possible pneumonia. The patient also admitted that she has been using crack cocaine and recently relapsed on Friday due to the [place] and she did some crack cocaine, and she is also trying to stop using these illicit drugs. At this point, the patient denies any sick contacts, and the patient denies any significant travel history. Of note, the patient stated that in the past she had like enlarged lymph nodes, which she went to see her ENT doctor for, and basically, she was supposed to follow up with these enlarged lymph nodes. Next at this point, the patient denies any nausea, vomiting, dizziness, chest pain, palpitations, abdominal pain, but endorses shortness of breath, productive cough with clear sputum, fevers, chills. REVIEW OF SYSTEMS: Positive for fever, sore throat, shortness of breath, substance abuse, otherwise as documented in the HPI. All other systems have been reviewed and are negative. PAST MEDICAL HISTORY: The patient is noted to have hypothyroidism, diabetes mellitus type 2, hypertension, hyperlipidemia. FAMILY HISTORY: Reviewed and noncontributory to this visit. PAST SURGICAL HISTORY: Gallstone removal, hysterectomy, appendectomy, right thumb surgery. PSYCHIATRIC HISTORY: The patient has a history of anxiety, depression. The patient denies any suicidal ideation, and hallucinations. SOCIAL HISTORY: The patient smokes 1 to 1.5 packs per day. The patient stated that she started smoking when she was 18 years old, and the patient just quit tonight. The patient abuses crack cocaine, last time the patient used crack cocaine was Friday. The patient states that she used crack cocaine for Stef. ALLERGIES: THE PATIENT IS ALLERGIC TO CODEINE. CURRENT MEDICATIONS: The patient takes fluoxetine 20 mg, buspirone 15 mg, aspirin 81 mg, amitriptyline 25 mg, lisinopril 5 mg daily, Formoso 300 mg, metformin 850 mg, ibuprofen 800 mg, Crestor 20 mg, gabapentin 800 mg, iron, and Flonase. PHYSICAL EXAMINATION: VITAL SIGNS: The patient's blood pressure is 107/70, pulse of 98, respiratory rate of 22, temperature of 100.9, O2 saturation is 90-tali on room air. GENERAL: The patient is sitting in bed, appears to be in mild distress. Alert and oriented x3. Able to speak to me in full sentences. HEENT: Normocephalic, atraumatic. Pupils are equal, round, and reactive to light. Extraocular movements are intact. No scleral icterus. The patient has 2 L nasal cannula in her nares. Mucous membranes are dry. NECK: Trachea is midline. Full range of motion. No JVD is appreciated. LUNGS: The patient has rales bilaterally at the lower lobes. CARDIAC: Positive S1 and S2. Regular rate and rhythm. No murmurs, no gallops, no rubs appreciated. ABDOMEN: Soft, nontender, and nondistended. EXTREMITIES: The patient has 5/5 upper extremity strength and 5/5 lower extremity strength. Good pulses bilaterally at the upper and lower extremities. There is no edema noted. NEURO: Cranial nerves 2 through 12 grossly intact. No neurologic deficits noted. SKIN: Warm, dry, and intact. PSYCH: Normal affect. Alert and oriented x3. IMAGING STUDIES: Chest x-ray that was done showed multifocal pneumonia. LABORATORY DATA: CBC shows WBC is 14.9, hemoglobin is 12.9, hematocrit is 37.9, platelet count is 295. ABG that was done in the ED shows pH of 7.46, pCO2 of 31.4, pO2 of 55.9. Electrolytes sodium is 136, potassium is 3.9, chloride is 101, carbon dioxide of 26, anion gap of 13, BUN is 8, creatinine is 0.83, glucose is 122. Lactic acid was 1.8. AST is 37, ALT is 21. Urinalysis is negative. Serology is negative for Legionella and Strep pneumo. ASSESSMENT AND PLAN: This is a 53-year-old female being admitted for, 1. Hypoxemic respiratory failure, most likely due to community-acquired pneumonia. At this point, the patient is on oxygenation. We will continue the patient on oxygenation, and we will give the patient her CPAP during the night. 2. Community-acquired pneumonia. At this point, we started the patient on antibiotics. We will continue the patient on antibiotics. We will continue the patient on IV fluids. I will give the patient DuoNeb treatments for shortness of breath. We will give the patient p.r.n. medication for pain and fever. We will follow up on cultures, and we will give antibiotics based on culture results. 3. Diabetes mellitus type 2. We will continue the patient on insulin sliding scale. We will monitor the patient's blood sugars closely. 4. Hypertension. We will monitor the patient's blood pressure, and we will give the patient her home medications, and we will supplement the patient's home medications with p.r.n. blood pressure medications if the patient's blood pressure is elevated. 5. Hypothyroidism. We will continue the patient on her home dose of Synthroid. 6. Deep vein thrombosis/gastrointestinal prophylaxis. Job ID: [id number]
--- NOTE | 2018-09-17 11:33 | PDOC.PN ---
- Subjective Encounter Start Date: 09/17/18 Encounter Start Time: 11:32 Subjective: Dyspnea and cough a bit better compared to last night. No N/V -: Appetite preserved. Able to ambulate to restroom -: Using nasal cannula oxygen. Does not use home oxygen - Objective Resuscitation Status - Order Detail: 09/17/18 03:52 Resuscitation Status Routine Resuscitation Status: FULL: Full Resuscitation Vital Signs & Weight: Vital Signs (12 hours) Temp Pulse Resp BP Pulse Ox 09/17/18 11:13 98 F 70 16 114/69 94 L 09/17/18 08:59 71 09/17/18 07:35 93 L 09/17/18 07:32 71 24 H 93 L 09/17/18 07:12 98 F 73 18 141/75 H 93 L 09/17/18 04:25 97.7 F 72 20 92/59 L 95 Weight Weight 215 lb 6.266 oz I&O: 09/16/18 09/17/18 09/18/18 06:59 06:59 06:59 Intake Total 580 Balance 580 Result Diagrams: 09/16/18 18:16 09/16/18 18:16 Additional Labs: Accuchecks 09/17/18 09/17/18 11:11 05:45 POC Glucose 153 H 120 H Phys Exam - Physical Examination Mildly tachypneic HEENT: PERRLA, oral pharynx no lesions Neck: supple, full ROM Decreased bs right mid/lower zones, no distinct wheeze Cardiovascular: RRR Gastrointestinal: soft, non-tender Musculoskeletal: no edema Neurological: non-focal Psychiatric: normal affect, A&O x 3 Skin: no rash Dx/Plan (1) CAP (community acquired pneumonia) Code(s): J18.9 - PNEUMONIA, UNSPECIFIED ORGANISM Status: Acute Plan: Multifocal pneumonia. Presently on levaquin and azithromycin. Continue nebs/ prednisone/supportive care. Discontinue further cocaine use. (2) Hypothyroid Code(s): E03.9 - HYPOTHYROIDISM, UNSPECIFIED Status: Chronic Plan: Continue home thyroid medications (3) Hypertension Code(s): I10 - ESSENTIAL (PRIMARY) HYPERTENSION Status: Chronic Plan: Resume home medications (4) SWETA (obstructive sleep apnea) Code(s): G47.33 - OBSTRUCTIVE SLEEP APNEA (ADULT) (PEDIATRIC) Status: Chronic Plan: Home bipap qhs and with naps. (5) Type 2 diabetes mellitus Status: Acute - Plan cont current plan of care, continue antibiotics, respiratory therapy, DVT proph w/lovenox Continue current supportive care - steroids/wean oxygen as able/continue antibiotics. Continue bipap from home. Increase activity slowly. Saline lock IVFs upon completion of current bag. Check AM CBC. * .
--- NOTE | 2018-09-17 16:56 | CON ---
DATE OF CONSULTATION: HISTORY OF PRESENT ILLNESS: Marbella is 53-year-old obese female who sees Dr. James in office for sleep apnea. She presented to the office with shortness of breath, cough, fever up to 101 degrees. She is smoking a pack a day. She admits to using cocaine and marijuana. She was hypoxemic in the ER with sats 90% on room air. She is admitted. This morning, she is sleeping on the BiPAP. Told me, she is feeling better. Still got a cough, but no chest pain, chills, or sweats. She sees primary care physician at [facility] [place], [place]. In fact, she was here recently in February 2008 with substance abuse, hypertension, chest pain, respiratory failure requiring intubation. Echo at that time was normal. PAST MEDICAL HISTORY: Diabetes, hypertension, substance abuse, hypothyroidism, depression. MEDICATION: Chronic medications includes, 1. Synthroid 100. 2. [place]. 3. Metformin twice a day. 4. Crestor 20 once a day. 5. Lisinopril 5. 6. Gabapentin 3 times a day. 7. Amitriptyline 25 once a day. 8. Aspirin. 9. BuSpar one tab three times a day. PREVIOUS SURGERIES: Otherwise included , right wrist surgery. ALLERGIES: NONE. REVIEW OF SYSTEMS: Ten point negative. PHYSICAL EXAMINATION: VITAL SIGNS: Sats are 91% on 1 L, respiratory rate 24, temperature 98, blood pressure is 141/73. CHEST: Reveals minimal crackles. There is no obvious wheezing. CARDIAC: Normal S1, S2. No gallops. ABDOMEN: No masses. IMAGING DATA: X-ray shows bilateral infiltrates. LABORATORY DATA: Otherwise, shows white count 14,000, H and H 12 and 37, platelet count is 295. PO2 was 55, pCO2 31.46. Lytes are normal. Influenza titer was otherwise negative. IMPRESSION: 1. Bilateral bronchopneumonia. 2. Chronic obstructive pulmonary disease. 3. Asthma. 4. Bipolar, depression and substance abuse. PLAN: 1. She was started on Zithromax and Levaquin along with neb treatment continue. 2. Added low-dose steroids. 3. Once she is improved, she can switch over to oral antibiotics. 4. She is to refrain from smoking. We will notify Dr. James. This is a consultation note, 70 minutes, 50% direct patient care. Job ID: [id number]
[2018-09-17] MEDS ORDERED: Azithromycin 500 MG in Sodium Chloride 0.9% 250 ML 250 ML IVPB SCH (20:00)
[2018-09-17] MEDS: methylPREDNISolone Sod Succ/PF 125 MG/2 ML VIAL IVP SCH (20:06)
[2018-09-17] MEDS ORDERED: Amitriptyline HCl 25 MG TAB PO SCH (21:00)
[2018-09-17] MEDS ORDERED: Rosuvastatin 20 MG TAB PO SCH (21:00)
[2018-09-18] MEDS: Levothyroxine Sodium 100 MCG TAB PO SCH (05:51)
[2018-09-18 08:08] LABS: Anion Gap 14 mmol/L (10-20); BUN (Urea Nitrogen) 11 mg/dL (9.8-20.1); Calc. Creatinine Clearance 130 mL/min (70-130); Calcium 9.7 mg/dL (7.8-10.44); Carbon Dioxide 22 mmol/L (22-29); Chloride 106 mmol/L (98-107); Estimated GFR-MDRD 78; Glucose 184 mg/dL (70-105); Potassium 4.6 mmol/L (3.5-5.1); Sodium 137 mmol/L (136-145)
[2018-09-18 08:18] LABS: Band 2 % (5-11); Eosinophils 1 % (0-10); Hemoglobin 11.9 g/dL (12.0-16.0); Lymphocytes 8 % (21-51); MDiff Complete? YES; Mean Corpuscular Hemoglobin 31.6 pg (27.0-31.0); Mean Corpuscular Volume 90.2 fL (78.0-98.0); Mean Platelet Volume 7.1 fL (7.4-10.4); Neutrophil 89 % (42-75); Platelet Count 289 thou/uL (130-400); RBC Distribution Width 12.1 % (11.5-14.5); RBC Morphology Normal; Red Blood Cell (RBC) Count 3.78 mill/uL (4.20-5.40); White Blood Cell (WBC) Count 7.9 thou/uL (4.8-10.8)
[2018-09-18] MEDS ORDERED: Nicotine 21 MG PATCH TD SCH (09:00)
[2018-09-18] MEDS: Ferrous Sulfate 325 MG TAB PO SCH (09:04)
[2018-09-18] MEDS: Gabapentin 400 MG CAP PO SCH ×2 (09:04→14:52)
[2018-09-18] MEDS: Aspirin 81 mg Enteric Coated Tablet PO SCH (09:04)
[2018-09-18] MEDS: Lisinopril 5 MG TAB PO SCH (09:04)
[2018-09-18] MEDS: busPIRone HCl 10 MG TAB PO SCH ×2 (09:05→14:52)
[2018-09-18] MEDS: Famotidine 20 MG TAB PO SCH (09:05)
[2018-09-18] MEDS: Enoxaparin Sodium 40 MG/0.4 ML SYRINGE SC SCH (09:06)
[2018-09-18] MEDS: Famotidine/PF 20 mg/2ml Vial SLOW IVP SCH (09:06)
[2018-09-18] MEDS: FLUoxetine HCl 20 MG CAP PO SCH (09:16)
[2018-09-18] MEDS: Sodium Chloride 0.9% 1,000 ML IV SCH (09:17)
[2018-09-18] MEDS: methylPREDNISolone Sod Succ/PF 125 MG/2 ML VIAL IVP SCH (09:17)
--- NOTE | 2018-09-18 10:25 | PRG ---
DATE OF SERVICE: SUBJECTIVE: This morning, she is awake, alert, and responsive. She is better. OBJECTIVE: VITAL SIGNS: Sats are 95% on 2 L, temperature 97, blood pressure 149/79. CHEST: Decreased breath sounds. No wheezing. CARDIAC: Normal S1 and S2. No gallops. ABDOMEN: No masses. IMPRESSION: 1. Chronic obstructive pulmonary disease exacerbation. 2. Bronchitis. 3. Pneumonia. 4. Sleep apnea. PLAN: 1. Probably switch over to oral antibiotics. 2. Continue neb treatments, steroids. 3. We will follow. Job ID: [id number]
--- NOTE | 2018-09-18 11:27 | PDOC.PN ---
- Subjective Encounter Start Date: 09/18/18 Encounter Start Time: 11:25 Subjective: Feeling better. Still on oxygen, eager to wean and walk -: Requests nicotine patch - Objective Resuscitation Status - Order Detail: 09/17/18 03:52 Resuscitation Status Routine Resuscitation Status: FULL: Full Resuscitation Vital Signs & Weight: Vital Signs (12 hours) Temp Pulse Resp BP BP Pulse Ox 09/18/18 09:04 74 141/79 H 09/18/18 08:45 95 09/18/18 07:42 95 09/18/18 07:38 74 20 95 09/18/18 07:28 97.6 F 57 L 16 141/79 H 94 L 09/18/18 04:14 97.5 F L 63 20 144/85 H 95 09/18/18 00:30 98.0 F 71 20 133/82 94 L 09/18/18 00:21 63 18 93 L Weight Weight 215 lb 6.266 oz I&O: 09/17/18 09/18/18 09/19/18 06:59 06:59 06:59 Intake Total 1360 Balance 1360 Result Diagrams: 09/18/18 07:27 09/18/18 07:27 Additional Labs: Accuchecks 09/18/18 09/17/18 09/17/18 05:14 20:03 16:08 POC Glucose 182 H 197 H 140 H Phys Exam - Physical Examination Constitutional: NAD HEENT: oral pharynx no lesions Neck: supple Respiratory: clear to auscultation bilateral Cardiovascular: RRR Gastrointestinal: soft, non-tender Musculoskeletal: no edema Neurological: non-focal, moves all 4 limbs Psychiatric: A&O x 3 Dx/Plan (1) CAP (community acquired pneumonia) Code(s): J18.9 - PNEUMONIA, UNSPECIFIED ORGANISM Status: Acute (2) Hypothyroid Code(s): E03.9 - HYPOTHYROIDISM, UNSPECIFIED Status: Chronic (3) Hypertension Code(s): I10 - ESSENTIAL (PRIMARY) HYPERTENSION Status: Chronic (4) SWETA (obstructive sleep apnea) Code(s): G47.33 - OBSTRUCTIVE SLEEP APNEA (ADULT) (PEDIATRIC) Status: Chronic (5) Type 2 diabetes mellitus Status: Acute - Plan cont current plan of care, continue antibiotics, respiratory therapy, incentive spirometry, out of bed/ambulate * Continue current supportive care - oral steroid taper/wean oxygen as able/ continue antibiotics (oral). * Continue bipap from home. * Increase activity slowly * Added nicotine patch * Home when weaned from oxygen and able to tolerate walking in the halls * Patient improving *
[2018-09-18 16:19] VITALS: BP 100/65; TEMP 97.8
[2018-09-19] MEDS ORDERED: predniSONE 20 MG TAB PO SCH (08:00)
[2018-09-19] MEDS ORDERED: Nicotine 21 MG PATCH TD SCH (09:00)
--- NOTE | 2018-09-19 13:33 | DIS ---
DATE OF ADMISSION: 09/16/2018 DATE OF DISCHARGE: 09/18/2018 PRIMARY CARE PHYSICIAN: Thuan Nicolas MD CHIEF COMPLAINT: Shortness of breath. PRINCIPAL DIAGNOSIS ON ADMISSION: Hypoxemic respiratory failure secondary to community-acquired pneumonia. DISCHARGE DIAGNOSES: 1. Hypoxemic respiratory failure secondary to community-acquired pneumonia. 2. Hypothyroidism. 3. Essential hypertension. 4. Obstructive sleep apnea, on home CPAP. 5. Type 2 diabetes. 6. Tobacco dependence, ongoing. 7. Substance use, intermittent (crack cocaine). 8. History of bipolar disorder, presently well controlled. CONSULTS ON HOSPITAL STAY: Pulmonary Critical Care Medicine, Dr. Kowalski. HOSPITAL COURSE: Ms. Tyson is a very pleasant 53-year-old female, admitted through the emergency department with worsening dyspnea for 3 to 4 days prior to admission. She endorsed a fever of 101. Also endorsed sinus inflammation and sore throat. Additionally, she had used crack cocaine with a recent relapse on Friday due to Stef with illness ensuing a couple of days after. She was admitted to the hospital for additional evaluation and care. Over the ensuing days, she improved with steroids, antibiotic therapy, nebulizers, and tobacco cessation. She has now been weaned from oxygen, and tolerating activity including walking in the halls. I saw and evaluated the patient this morning, 09/18/2018. Since that time, she has weaned from oxygen therapy, and is stable for transition to home. Please see my dictated note from earlier today for physical exam, which is unchanged at this time. MEDICATIONS ON DISCHARGE: As follows: 1. Levaquin 750 mg p.o. daily for 5 additional days. 2. Amitriptyline 25 p.o. at bedtime. 3. Aspirin 81 mg p.o. daily. 4. Buspirone 15 mg p.o. 3 times daily. 5. Fluoxetine 20 mg tablets, take 3 tablets p.o. once daily. 6. Gabapentin 800 mg p.o. 3 times daily. 7. Iron 18 mg p.o. once daily. 8. Levothyroxine 100 mcg p.o. once daily. 9. Lisinopril 5 mg p.o. once daily. 10. [place] carbonate 300 mg, take 1 tablet p.o. at bedtime. 11. Rosuvastatin 20 mg p.o. at bedtime. 12. Vitamin D3 of 1000 units p.o. once daily. 13. Fluticasone 1 spray nasally daily. 14. Ibuprofen, takes 800 mg p.o. q.8 hourly p.r.n. for severe pain. 15. Metformin 850 mg p.o. b.i.d. 16. Nicotine patch 21 mg per day. 17. Prednisone taper, 10 mg tablet with instructions for 20 mg p.o. x2 days, 10 mg p.o. x3 days, 5 mg p.o. x1 day and stop. Prescriptions provided. DIET: Diabetic/heart-healthy. DISCHARGE INSTRUCTIONS: Tobacco cessation. RECOMMENDATIONS: Cocaine cessation recommendation. Total time spent discharge planning is 35 minutes. Job ID: [id number] MTDD
--- NOTE | 2018-09-21 08:09 | PQF ---
[employer] HERNANDO Leal RANDALL [id number] [id number] CLINICAL DOCUMENTATION IMPROVEMENT CLARIFICATION FORM: ICD-10 Updated PLEASE DO AN ADDENDUM TO THE PROGRESS NOTE WITH ANY DOCUMENTATION UPDATES OR ADDITIONS AND CARRY THROUGH TO DC SUMMARY. THANK YOU. Please exercise your independent, professional judgment in responding to the clarification form. Clinical indicators are provided on the bottom of this form for your review Please check appropriate box(s) to clarify if the following diagnosis has been ruled in or ruled out: Sepsis is [ x] Ruled in diagnosis [x ] Continue to treat [ ] Resolved [ ] Ruled out diagnosis [ ] Cannot rule out diagnosis [ ] Other diagnosis [ ] Unable to determine For continuity of documentation, please document condition throughout progress notes and discharge summary. Thank You. CLINICAL INDICATORS - SIGNS / SYMPTOMS / LABS Temp- 100.9 -documented in ED note signed by Radha VELA [id number] in H&P signed by Radha VELA [id number] in H&P signed by Radha VELA WBC -14.9 as per labs on 09/16 Blood culture shows no growth on 09/16 as per lab report ED note by Radha VELA states ""sepsis secondary to Pneumonia". There is no documentation of sepsis except ED notes. RISK FACTORS Pneumonia TREATMENTS Iv antibiotic-Rocephin, Azithromycin given. IVF Cultures taken (This form is maintained as a part of the permanent medical record) 2014 [employer] All Rights Reserved ELINOR [email or web address] Office: [phone] [facility]ITAL[facility]
[2018-09-21 23:08] LABS: Mycoplasma pneumoniae IgG AB 937 U/mL (0-99); Mycoplasma pneumoniae IgM AB Less than 770 U/mL (0-769)
== END 2018-09-18 18:10 | disposition home or self-care (01) | DRG 871 ==
LOC: ERS 17:58 → SURG A 20:14
PROVIDERS: ADMIT Internal Medicine; ATTEND Internal Medicine
DX: A41.9 Sepsis, unspecified organism (principal); J18.9 Pneumonia, unspecified organism; J96.91 Respiratory failure, unspecified with hypoxia; J44.0 Chronic obstructive pulmonary disease with (acute) lower respiratory infection; J44.1 Chronic obstructive pulmonary disease with (acute) exacerbation; G47.33 Obstructive sleep apnea (adult) (pediatric); E03.9 Hypothyroidism, unspecified; E11.9 Type 2 diabetes mellitus without complications; E78.00 Pure hypercholesterolemia, unspecified; F31.9 Bipolar disorder, unspecified; I10 Essential (primary) hypertension; F41.9 Anxiety disorder, unspecified; E66.9 Obesity, unspecified; F17.210 Nicotine dependence, cigarettes, uncomplicated; F14.10 Cocaine abuse, uncomplicated; F12.10 Cannabis abuse, uncomplicated; Z98.890 Other specified postprocedural states; Z79.84 Long term (current) use of oral hypoglycemic drugs; Z79.899 Other long term (current) drug therapy; Z90.710 Acquired absence of both cervix and uterus; Z90.49 Acquired absence of other specified parts of digestive tract; Z79.82 Long term (current) use of aspirin; Z68.34 Body mass index [BMI] 34.0-34.9, adult; Z88.5 Allergy status to narcotic agent
CPT/HCPCS: 36415; 36416; 71045; 80048; 80053; 81003; 82805; 83605; 85007; 85025; 85027; 87040; 87804; 87899; 94640; 96361; 96365; 96367; J0456; J0696; J1650; J1956; J2930; J7050; J7620; Q0162

== ENCOUNTER 2018-12-24 23:07 | Emergency (ER) | payer MEDICARE, MEDICAID | END 2018-12-25 01:07 | disposition left against medical advice (07) | LOC: ERS 23:07 | DX: Z53.21 Procedure and treatment not carried out due to patient leaving prior to being seen by health care provider (principal) ==

== ENCOUNTER 2019-07-05 08:44 | Outpatient (CLI) | payer MEDICARE, MEDICAID ==
--- NOTE | 2019-07-05 11:25 | CT ---
CT CHEST WITH IV CONTRAST: HISTORY: Pulmonary nodule. COMPARISON: 07/09/2018 FINDINGS: Several small nodules, primarily in the right lower lobe, are stable. No evidence for new pulmonary n odule. There are some fatty changes in the liver. No mediastinal mass or adenopathy. IMPRESSION: Stable small nodules primarily in the right lower lobe. POS: [facility]
== END 2019-07-05 08:45 | disposition home or self-care (01) ==
LOC: CT 08:44
PROVIDERS: ATTEND Internal Medicine Critical Care Medicine
DX: R91.8 Other nonspecific abnormal finding of lung field (principal); G47.33 Obstructive sleep apnea (adult) (pediatric)
CPT/HCPCS: 71260; 82565

== ENCOUNTER 2020-10-31 09:42 | Outpatient (CLI) | payer MEDICARE, MEDICAID ==
--- NOTE | 2020-10-31 11:35 | CT ---
EXAM: CT of the chest with contrast HISTORY: Lung nodule COMPARISON: 07/05/2019, 07/09/2018 TECHNIQUE: Multiple contiguous axial images were obtained in a CT the chest with contrast. Coronal an d sagittal reformats were performed. FINDINGS: HEART: Normal in size without focal cardiac abnormality. Calcifications in the coronary arteries. MEDIASTINUM: No hilar or mediastinal lymphadenopathy. LUNGS: There are stable nodular opacities in the right lower lobe measuring up to 5 mm in size. These are predominantly in the superior segment of the right lower lobe. These remain stable dating back to 2018. PLEURAL SPACE: No pneumothorax or pleural effusion. CHEST WALL SOFT TISSUES: Unremarkable OSSEOUS STRUCTURES: Degenerative changes in the spine. VISUALIZED SUBDIAPHRAGMATIC STRUCTURES: There is diffuse fatty infiltration of the liver. IMPRESSION: 1. Stable right lower lobe pulmonary nodules. These been stable since 2018 and no further follow-up i s necessary at this time. 2. Fatty liver
== END 2020-10-31 09:43 | disposition home or self-care (01) ==
LOC: BICCT 09:42
PROVIDERS: ATTEND Internal Medicine Critical Care Medicine
DX: R91.8 Other nonspecific abnormal finding of lung field (principal); G47.33 Obstructive sleep apnea (adult) (pediatric); K76.0 Fatty (change of) liver, not elsewhere classified
CPT/HCPCS: 71260